=== PATIENT | female | born 1960 | race Caucasian/White ===

== ENCOUNTER 2016-04-25 08:26 | Observation (INO) ==
[2016-04-25] MEDS ORDERED: CeFAZolin Pre 3,000 MG/100 ML 3,000 MG/100 ML BAG IVPB ONE (09:05)
[2016-04-25] MEDS: Ringers Solution, Lactated 1,000 ML IVC SCH ×4 (09:22→15:45)
[2016-04-25] MEDS ORDERED: Scopolamine Patch 1.5 MG PATCH.TD72 TD ONE (09:41)
[2016-04-25] MEDS ORDERED: Famotidine 20 MG/2 ML VIAL IVP ONE (09:41)
--- NOTE | 2016-04-25 09:44 | Anesthesia Evaluation PreOp ---
Date of Encounter: 04/25/16 Time of Encounter: 09:40 - Past History Planned Operation: Robotic Lap Hernia Repair Cardiac History: HTN, Hyperlipidemia Pulmonary History: Denies Any Significant HX [employer] AUTHOR History: Denies Any Significant HX Other Medical History: Diabetes Type II (Accu check 151), Other (Morbid Obesity BMI 49) Anesthesia History: No Prior Anesthetic Complications : Yes Alcohol Use: none Drug use: none Medications and Allergies Aspirin 81 mg PO DAILY 04/25/16 [History] Atenolol [Tenormin] 50 mg PO HS 04/25/16 [History] Hydrochlorothiazide 25 mg PO HS 04/25/16 [History] Lovastatin 10 mg PO HS 04/25/16 [History] Metformin [Glucophage] 850 mg PO BIDWM 04/25/16 [History] MetroNIDAZOLE [Noritate] 1 appl TP DAILY 04/25/16 [History] Potassium Chloride [K-Tab ER] 10 meq PO HS 04/25/16 [History] Allergies No Known Allergies Allergy (Verified 04/25/16 09:13) - Meds/Allergy Pre-op Review Medications Reviewed: Yes Allergies Reviewed: Yes Beta Blockers on Current Med List: Yes (Took Atenolol last night 2029) Anesthesia Results - Labs Laboratory Tests 04/18/16 04/18/16 04/18/16 11:32 11:32 11:32 Hgb 13.0 Hct 39.9 Plt Count 242 Sodium 140 Potassium 3.6 BUN 12 Creatinine 0.78 Hemoglobin A1c 6.4 H - Imaging EKG: report reviewed (SR) Anesthesia Exam O2 Sat Height 1.7 m Height 1.7 m Height 1.7 m Weight 141.067 kg Weight 141.067 kg Weight 141.067 kg O2 Sat by Pulse Oximetry 100 Vital Signs Temp Pulse Resp BP Pulse Ox 97.7 F 78 18 153/85 100 04/25/16 08:53 04/25/16 08:53 04/25/16 08:53 04/25/16 08:53 04/25/16 08:53 Height: 5'7 Weight: 311 lbs NPO (# of Hours): MN - HEENT Pupil (Motor): Pupils equal, EOMI Mallampati: III Teeth: Normal Oral Opening: Less than or equal to 3 - [employer] AUTHOR LOC: Oriented [employer] AUTHOR Motor: Normal RUE, Normal LUE, Normal RLE, Normal LLE, Normal Face [employer] AUTHOR Sensory: Normal: RUE, LUE, RLE, LLE, Face - Cardiac Rhythm: Regular Murmur: None JVD: No Carotid Bruit: No - Pulmonary Breath Sounds: bilateral Clear Respiratory Effort: Symmetrical Anesthesia Assess/Plan ASA Score: 3 (MO HTN DM) Modified Bethel Scale for Level of Consciousness: Cooperative, oriented, and tranquil Anesthetic Plan: General Monitoring Plan: Standard Monitors Recovery Plan: PACU (Discussed GA, agrees to proceed)
[2016-04-25] MEDS ORDERED: Lidocaine -MPF 4% 5 ML AMPUL ONE (09:55)
[2016-04-25] MEDS ORDERED: *HR* Midazolam HCl 2 MG/2 ML VIAL ONE (10:06)
[2016-04-25] MEDS ORDERED: *HR* FentaNYL (PF) 100 MCG/2 ML VIAL ONE ×2 (10:06→12:36)
[2016-04-25] MEDS ORDERED: *HR* Propofol 200 MG/20 ML VIAL IVP ONE ×2 (10:06→10:50)
[2016-04-25] MEDS ORDERED: Lidocaine -MPF 2% 2 ML VIAL ONE (10:07)
[2016-04-25] MEDS ORDERED: *HR* Rocuronium Bromide 50 MG/5 ML VIAL ONE (10:07)
[2016-04-25] MEDS ORDERED: Neostigmine Methylsulfate 3 MG/3 ML SYRINGE ONE (10:07)
[2016-04-25] MEDS ORDERED: *HR* Succinylcholine 200 MG/10 ML VIAL IVP ONE (10:07)
[2016-04-25] MEDS ORDERED: Naloxone 0.4 MG/ML INJ IVP PRN ×2 (10:19→14:51)
[2016-04-25] MEDS ORDERED: *HR* Meperidine 25 MG/ML SYRINGE IVP PRN (10:19)
[2016-04-25] MEDS ORDERED: Albuterol 2.5 MG/3 ML NEBULIZER IH ONE ×2 (10:19→14:51)
[2016-04-25] MEDS ORDERED: *HR* HYDROmorphone (PF) 1 MG/ML SYRINGE IVP PRN ×3 (10:19→14:51)
[2016-04-25] MEDS ORDERED: *HR* Labetalol 100 MG/20 ML MDV IVP PRN ×2 (10:19→14:51)
[2016-04-25] MEDS ORDERED: Ondansetron 4 MG/2 ML VIAL IVP ONE ×2 (10:19→14:51)
--- NOTE | 2016-04-25 10:25 | History & Physical Report ---
Date of Encounter: 04/25/16 Time of Encounter: 10:24 24 Hour HP Update - Instructions Instructions: If the History and Physical is less than 30 days old and was completed prior to A.M. admission and or procedure and has NOT been updated on calendar day of procedure please complete this update prior to performing procedure. - Update Patient reports changes in Medical Condition: No Changes in assessment/condition: No Changes in Medication: No Preop tests/diagnostics Reviewed: Yes Surgery Remains Indicated: Yes Consent for Planned Operative Procedure(s) Verified: Yes - Pre-Operative Checklist Preoperative Checklist Indicated: Yes Prophylactic Antibiotic Ordered: Yes Home Medications Include Beta Xander: Yes Beta Xander Taken Today (Day of Surgery): No Beta Xander Taken Yesterday (Day Prior to Surgery): Yes
[2016-04-25] MEDS ORDERED: Ringers Solution, Lactated 1,000 ML IVC SCH (10:30)
[2016-04-25] MEDS ORDERED: Dexamethasone 4 MG/ML VIAL ONE (11:08)
[2016-04-25] MEDS ORDERED: Ondansetron 4 MG/2 ML VIAL ONE (11:08)
[2016-04-25] MEDS ORDERED: *HR* HYDROmorphone 2 MG/ML SYRINGE ONE (13:46)
--- NOTE | 2016-04-25 14:27 | Anesthesia Evaluation Post Op ---
Date of Encounter: 04/25/16 Time of Encounter: 14:24 - Vital Signs Vital Signs: Vital Signs/O2 Sat/Glucose, Most Current Temp Pulse Resp BP Pulse Ox 04/25/16 14:10 82 14 153/86 98 04/25/16 14:05 83 16 151/101 98 04/25/16 14:00 97.4 F L 88 16 142/83 97 - Lungs Lungs: Clear Ascult./Percussion - Airway Airway: Non-obstructed - Cardiovascular Regular Rate, Baseline Rhythm - Mental Status Mental Status: Alert & Oriented, Answers Appropriately - Pain Pain Scale: 2 Pain Scale used: Numeric (1 - 10) - Nausea Vomiting Nausea Vomiting: Not Present - Hydration Hydration: Ice chips, Has not voided - Discharge PostOp Status: Transfer Patient to floor
[2016-04-25] MEDS ORDERED: *HR* Promethazine 25 MG/ML VIAL IVP PRN (14:51)
[2016-04-25] MEDS ORDERED: Ondansetron 4 MG/2 ML VIAL IVP PRN (14:51)
[2016-04-25] MEDS: 0.9 % Sodium Chloride 1,000 ML IVC SCH (15:22)
[2016-04-25] MEDS: Ketorolac 15 MG/ML VIAL IVP PRN (18:24)
[2016-04-26] MEDS: 0.9 % Sodium Chloride 1,000 ML IVC SCH (05:32)
[2016-04-26] MEDS ORDERED: Pantoprazole 40 MG VIAL IVP SCH (09:00)
[2016-04-26] MEDS: Ketorolac 15 MG/ML VIAL IVP PRN ×2 (09:37→17:42)
--- NOTE | 2016-04-26 13:06 | Discharge Summary ---
Date of Encounter: 04/26/16 Time of Encounter: 13:04 - Discharge Diagnosis (1) Ventral hernia Priority: Primary Status: Resolved Qualifiers: Obstruction and gangrene presence: without obstruction or gangrene Qualified Code(s): K43.9 - Ventral hernia without obstruction or gangrene - Discharge Medications Prescriptions: Tramadol HCl [Ultram] 50 mg PO Q6H PRN #30 tab PRN Reason: Pain Home Medications: Aspirin 81 mg PO DAILY 04/25/16 [History] Atenolol [Tenormin] 50 mg PO HS 04/25/16 [History] Hydrochlorothiazide 25 mg PO HS 04/25/16 [History] Lovastatin 10 mg PO HS 04/25/16 [History] Metformin [Glucophage] 850 mg PO BIDWM 04/25/16 [History] MetroNIDAZOLE [Noritate] 1 appl TP DAILY 04/25/16 [History] Potassium Chloride [K-Tab ER] 10 meq PO HS 04/25/16 [History] Tramadol HCl [Ultram] 50 mg PO Q6H PRN #30 tab 04/26/16 [Rx] Allergies/Adverse Reactions: Allergies No Known Allergies Allergy (Verified 04/25/16 09:13) General Surgery Exam Initial Vital Signs Temp Pulse Resp BP Pulse Ox 97.7 F 78 18 153/85 100 04/25/16 08:53 04/25/16 08:53 04/25/16 08:53 04/25/16 08:53 04/25/16 08:53 - General physical appearance well developed, well nourished, no distress - Eyes normal ocular movement - ENT normal mucosa, atraumatic, normocephalic - Neck trachea midline - Respiratory normal respiratory effort, clear to auscultation - Cardiovascular Cardiovascular exam: Present: RRR, 15, 16 - Abdomen Abdomen general surgery: Present: bowel sounds present, soft, tender (minimal, expected postoperative tenderness) - Incision Incision: Present: clean and dry, intact - Integumentary Integumentary general surgery: Present: warm and dry, no abnormal pigmentation - Neurologic Present: CN 2-12 grossly intact - Musculoskeletal Present: normal gait, normal posture - Psychiatric Psychiatric general surgery: Present: appropriate, oriented to person, oriented to place, oriented to time, speech is normal, memory intact Date of admission: 04/25/16 14:53 Primary care physician: Sean Crawford CNP Discharging clinician: Roland Carnes ([facility]) Anticipated date of discharge: 04/26/16 - Patient Status Disposition: Home, Self-Care Condition: Good Functional capacity at discharge: independent ambulation Overall status at discharge: patient is progressing back to baseline - Discharge Instructions Follow Up With: Roland Carnes DO [Partnered Physician] - 05/10/16 8:50 am Sean Crawford CNP [Primary Care Provider] - Additional Instructions: #1 may shower, no tub bath for 2 weeks #2 wash incisions with soap and water and pat dry daily #3 no lifting, pushing, pulling more than 15 pounds for the next 6 weeks #4 no driving until off narcotics for 24 hours and able to safely react in the car #5 may climb stairs - Diet and Activity Activity: other (See additional instructions above) Diet: advance to your usual diet - Hospital Course Hospital course: Ms. Ash is a 55 year old female who is s/p a Robotic assisted ventral hernia repair with Dr. Carnes. On POD #1, she is tolerating liquids without nausea/vomiting. Her pain is well controlled. She is ambulating and voiding without difficulty. Her vitals are stable and she is afebrile. We will begin discharge planning and plan for outpatient follow-up in the next 10-14 days. - Time Spent with Patient Total time spent providing and/or coordinating discharge services: Less than 30 minutes Labs on day of discharge: Labs from last 24 hours 04/26/16 04/26/16 04/25/16 11:13 07:38 20:54 POC Glucose 148 H 128 H 221 H 04/25/16 04/25/16 14:05 08:49 POC Glucose 186 H 151 H - Attending Attestation I examined this patient and my medical decision-making was reviewed with the VESSEL ENGINEER/PA/Advanced Practice Nurse/Resident Physician. I agree with the documented findings, disposition and treatment plan as described except to the extent set forth below.
[2016-04-26] MEDS: Ringers Solution, Lactated 1,000 ML IVC SCH ×2 (15:15)
[2016-04-26 16:04] VITALS: BP 107/68
--- NOTE | 2016-04-28 11:33 | Operative Note ---
Date of procedure: 04/25/16 Pre-op diagnosis: Incisional hernia Post-op diagnosis: same Procedure: Robotic lysis of adhesions 1 hour with primary herniorrhaphy followed by 20 x 12 cm mesh hernioplasty Anesthesia: FRED Surgeon: Roland Carnes Estimated blood loss (cc): 25 Condition: stable Disposition: same day Procedure in Detail: After informed consent, the patient was taken the operating room placed in a supine position. After adequate sedation anesthesia the abdomen was prepped and draped. A 12 mm cannula was placed in the right abdomen at the level of the posterior axillary line. Access was gained into the abdominal cavity and a pneumoperitoneum was created. There were 2 individual 8 mm cannulas placed in the right upper quadrant and right lower quadrant. Once in place the robot was docked over the patient's left hip. Camera was inserted with a [employer] grasper and a robotic scissor. Multiple adhesions were identified along the posterior aspect of the abdominal wall. These were taken down with sharp dissection and electrocautery. Once fully defined, a defect was identified in the abdominal wall to measure approximately 8 x 16 cm. The lysis of adhesions took approximately one hour. The primary defect was enclosed with a V lock suture in [id number] fashion. Once completed a 12 x 20 cm mesh was inserted into the abdomen. It was sewn to the abdominal wall with 0 Ethibond suture in running fashion. Once completed the needles were retrieved. Pneumoperitoneum was evacuated. The cannulas were removed. The fascia of the 12 mm cannula site was closed with 0 Vicryl suture. Skin was closed with 4-0 Vicryl suture.
== END 2016-04-26 19:04 | disposition home or self-care (01) ==
LOC: SAMDAY 08:26 → 3ANU 08:26
PROVIDERS: ADMIT Surgery; ATTEND Surgery